=== PATIENT | male | born 1930 | race Caucasian/White ===

== ENCOUNTER 2018-11-12 12:47 | Emergency (ER) | payer OTHER ==
[2018-11-12] MEDS ORDERED: NA CHLORIDE 0.9% 1,000 ML ONE (13:24)
[2018-11-12 13:43] LABS: Protime INR 1.19
[2018-11-12 13:47] LABS: Absolute Lymphocytes (CBC) 3.3 K/uL (0.7-4.9); Basophils % 0.2 % (0-1.3); Hematocrit 33.7 % (39.6-49.0); Lymphocytes % 53.6 % (15.3-44.8); RBC Red Blood Cell Count 3.96 M/uL (4.33-5.43)
[2018-11-12 14:22] LABS: ALT/SGPT 13 U/L (12-78); AST/SGOT 20 U/L (15-37); Albumin 3.6 g/dL (3.4-5.0); Alkaline Phosphatase 87 U/L (45-117); BUN Blood Urea Nitrogen 34 mg/dL (7-18); Bicarbonate 28 mmol/L (21-32); Bilirubin Direct 0.1 mg/dL (0-0.2); Bilirubin Total 0.4 mg/dL (0.2-1.0); Glucose Level 96 mg/dL (74-106); Lipase 132 U/L (73-393); NT PRO-BNP 1114 pg/mL (<450); Potassium 5.1 mmol/L (3.5-5.1); Protein, Total 7.4 g/dL (6.4-8.2); Sodium Level 141 mmol/L (136-145); Troponin (Emerg Dept Use Only) < 0.02 ng/mL (0.0-0.045)
[2018-11-12 14:30] LABS: Magnesium 2.3 mg/dL (1.8-2.4)
--- NOTE | 2018-11-12 14:37 | EDPHYS ---
Physician Documentation [facility] Name: Juan Mcbride Age: 88 yrs Sex: Male : 1930 Arrival Date: 11/12/2018 Time: 12:51 Bed 14 Private MD: LAMONT Physician Beau López HPI: 11/12 13:55 This 88 yrs old Male presents to ER via Ambulatory with complaints of charo Abnormal Lab Results. 13:55 This 88 yrs old Male presents to ER via Ambulatory with complaints of charo Abnormal Lab Results. 13:55 no complaint. Onset: The symptoms/episode began/occurred no complaint. Severity of charo symptoms: At their worst the symptoms were very mild in the emergency department the symptoms are unchanged. The patient has not experienced similar symptoms in the past. Historical: - Allergies: 13:05 ANTIHISTAMINES; aa5 - PMHx: 13:05 GERD; Hyperlipidemia; aa5 - PSHx: 13:04 Hernia repair; bilateral knee surgeries; triple bypass; aa5 13:05 Pacemaker; CABG; aa5 - Immunization history:: Pneumococcal vaccine is up to date, Flu vaccine is up to date. - Social history:: Smoking status: Patient/guardian denies using tobacco. - Ebola Screening: : No symptoms or risks identified at this time. - Family history:: not pertinent. ROS: 13:55 Constitutional: Negative for fever, chills, and weight loss, Eyes: Negative for injury, charo pain, redness, and discharge, ENT: Negative for injury, pain, and discharge, Neck: Negative for injury, pain, and swelling, Cardiovascular: Negative for chest pain, palpitations, and edema, Respiratory: Negative for shortness of breath, cough, wheezing, and pleuritic chest pain, Abdomen/GI: Negative for abdominal pain, nausea, vomiting, diarrhea, and constipation, Back: Negative for injury and pain, : Negative for injury, bleeding, discharge, and swelling, MS/Extremity: Negative for injury and deformity, Skin: Negative for injury, rash, and discoloration, Neuro: Negative for headache, weakness, numbness, tingling, and seizure, Psych: Negative for depression, anxiety, suicide ideation, homicidal ideation, and hallucinations, Allergy/Immunology: Negative for hives, rash, and allergies, Endocrine: Negative for neck swelling, polydipsia, polyuria, polyphagia, and marked weight changes, Hematologic/Lymphatic: Negative for swollen nodes, abnormal bleeding, and unusual bruising. Exam: 13:55 Constitutional: This is a well developed, well nourished patient who is awake, alert, charo and in no acute distress. Head/Face: Normocephalic, atraumatic. Eyes: Pupils equal round and reactive to light, extra-ocular motions intact. Lids and lashes normal. Conjunctiva and sclera are non-icteric and not injected. Cornea within normal limits. Periorbital areas with no swelling, redness, or edema. ENT: Nares patent. No nasal discharge, no septal abnormalities noted. Tympanic membranes are normal and external auditory canals are clear. Oropharynx with no redness, swelling, or masses, exudates, or evidence of obstruction, uvula midline. Mucous membranes moist. Neck: Trachea midline, no thyromegaly or masses palpated, and no cervical lymphadenopathy. Supple, full range of motion without nuchal rigidity, or vertebral point tenderness. No Meningismus. Chest/axilla: Normal chest wall appearance and motion. Nontender with no deformity. No lesions are appreciated. Cardiovascular: Regular rate and rhythm with a normal S1 and S2. No gallops, murmurs, or rubs. Normal PMI, no JVD. No pulse deficits. Respiratory: Lungs have equal breath sounds bilaterally, clear to auscultation and percussion. No rales, rhonchi or wheezes noted. No increased work of breathing, no retractions or nasal flaring. Abdomen/GI: Soft, non-tender, with normal bowel sounds. No distension or tympany. No guarding or rebound. No evidence of tenderness throughout. Back: No spinal tenderness. No costovertebral tenderness. Full range of motion. Male : Normal genitalia with no discharge or lesions. Skin: Warm, dry with normal turgor. Normal color with no rashes, no lesions, and no evidence of cellulitis. MS/ Extremity: Pulses equal, no cyanosis. Neurovascular intact. Full, normal range of motion. Neuro: Awake and alert, GCS 15, oriented to person, place, time, and situation. Cranial nerves II-XII grossly intact. Motor strength 5/5 in all extremities. Sensory grossly intact. Cerebellar exam normal. Normal gait. Psych: Awake, alert, with orientation to person, place and time. Behavior, mood, and affect are within normal limits. Vital Signs: 13:06 BP 151 / 73; Pulse 60; Resp 16 S; Temp 98.0(O); Pulse Ox 98% on R/A; Pain 0/10; aa5 14:32 BP 170 / 76; Pulse 65; Resp 17; Pulse Ox 99% on R/A; tw2 MDM: 13:17 Patient medically screened. [facility] 14:00 Data reviewed: vital signs, nurses notes, lab test result(s), EKG, radiologic studies, charo plain films. 11/12 13:18 Order name: Basic Metabolic Panel; Complete Time: 14:35 [facility] 11/12 13:18 Order name: CBC with Diff [facility] 11/12 13:18 Order name: LFT's; Complete Time: 14:35 [facility] 11/12 13:18 Order name: Magnesium; Complete Time: 14:35 [facility] 11/12 13:18 Order name: NT PRO-BNP; Complete Time: 14:35 [facility] 11/12 13:18 Order name: PT-INR; Complete Time: 14:14 [facility] 11/12 13:18 Order name: Troponin (emerg Dept Use Only); Complete Time: 14:35 [facility] 11/12 13:18 Order name: XRAY Chest (1 view) [facility] 11/12 13:18 Order name: EKG; Complete Time: 13:20 [facility] 11/12 13:18 Order name: Lipase; Complete Time: 14:35 [facility] 11/12 13:18 Order name: Urine Culture [facility] 11/12 13:52 Order name: CBC Smear Scan ED[facility] 11/12 14:13 Order name: Urine Dipstick--Ancillary (enter results) 11/12 13:18 Order name: Cardiac monitoring; Complete Time: 13:21 [facility] 11/12 13:18 Order name: EKG - Nurse/Tech; Complete Time: 13:39 [facility] 11/12 13:18 Order name: IV Saline Lock; Complete Time: 13:39 [facility] 11/12 13:18 Order name: Labs collected and sent; Complete Time: 13:39 [facility] 11/12 13:18 Order name: O2 Per Protocol; Complete Time: 13:21 [facility] 11/12 13:18 Order name: O2 Sat Monitoring; Complete Time: 13:21 [facility] 11/12 13:18 Order name: Urine Dipstick-Ancillary (obtain specimen); Complete Time: 14:18 [facility] Administered Medications: 13:30 Drug: NS 0.9% 1000 ml Route: IV; Rate: 1 bolus; Site: right antecubital; tw2 14:37 Follow up: Response: No adverse reaction; IV Status: Completed infusion; IV Intake: tw2 1000ml Disposition: 11/12/18 14:36 Discharged to Home. Impression: Unspecified kidney failure. - Condition is Stable. - Discharge Instructions: Dehydration, Adult, Dehydration, Adult, [id number]-[id number], Chronic Kidney Disease, Adult, [id number]-hf-Gxpi. - Medication Reconciliation Form, Thank You Letter, Antibiotic Education, Prescription Opioid Use form. - Follow up: Private Physician; When: 2 - 3 days; Reason: Recheck today's complaints, Continuance of care, Re-evaluation by your physician. - Problem is new. - Symptoms have improved. Signatures: Dispatcher [employer] EDBeau Limon MD MD cha Calderon, Audri, RN RN aa5 Christin Squires RN RN tw2 Corrections: (The following items were deleted from the chart) 13:06 13:04 Allergies: No Known Allergies; [place] aa5 14:49 14:36 11/12/2018 14:36 Discharged to Home. Impression: Unspecified kidney failure. tw2 Condition is Stable. Forms are Medication Reconciliation Form, Thank You Letter, Antibiotic Education, Prescription Opioid Use. Follow up: Private Physician; When: 2 - 3 days; Reason: Recheck today's complaints, Continuance of care, Re-evaluation by your physician. Problem is new. Symptoms have improved. [facility]
--- NOTE | 2018-11-12 14:37 | ER ---
Nurse's Notes [facility] Name: Juan Mcbride Age: 88 yrs Sex: Male : 1930 Arrival Date: 11/12/2018 Time: 12:51 Bed 14 Private MD: Diagnosis: Unspecified kidney failure Presentation: 11/12 13:01 Presenting complaint: Patient states: "Dr. Deal just called and said my sodium level aa5 is high", pt reports he had blood draw on . Pt reports dizziness and generalized weakness. Transition of care: patient was not received from another setting of care. Onset of symptoms was October 2018. Risk Assessment: Do you want to hurt yourself or someone else? Patient reports no desire to harm self or others. Initial Sepsis Screen: Does the patient meet any 2 criteria? No. Patient's initial sepsis screen is negative. Does the patient have a suspected source of infection? No. Patient's initial sepsis screen is negative. Care prior to arrival: None. 13:01 Acuity: JAIDA 3 aa5 13:01 Method Of Arrival: Ambulatory aa5 Historical: - Allergies: 13:05 ANTIHISTAMINES; aa5 - PMHx: 13:05 GERD; Hyperlipidemia; aa5 - PSHx: 13:04 Hernia repair; bilateral knee surgeries; triple bypass; aa5 13:05 Pacemaker; CABG; aa5 - Immunization history:: Pneumococcal vaccine is up to date, Flu vaccine is up to date. - Social history:: Smoking status: Patient/guardian denies using tobacco. - Ebola Screening: : No symptoms or risks identified at this time. - Family history:: not pertinent. Screenin:15 Abuse screen: Denies threats or abuse. Nutritional screening: No deficits noted. tw2 Tuberculosis screening: No symptoms or risk factors identified. Fall Risk Secondary diagnosis (15 points) impaired mobility. Assessment: 13:16 General: Appears in no apparent distress. slender, well groomed, Behavior is calm, tw2 cooperative, appropriate for age. Pain: Denies pain. Neuro: Reports dizziness, weakness "when i stand up". Cardiovascular: Heart tones S1 S2 Patient's skin is warm and dry. Respiratory: Airway is patent Respiratory effort is even, unlabored, Respiratory pattern is regular, symmetrical, Breath sounds are clear bilaterally. GI: No signs and/or symptoms were reported involving the gastrointestinal system. Abdomen is flat, Bowel sounds present X 4 quads. : No signs and/or symptoms were reported regarding the genitourinary system. EENT: No signs and/or symptoms were reported regarding the EENT system. Derm: Skin is pale. Musculoskeletal: Range of motion: intact in all extremities. 14:32 Reassessment: Patient appears in no apparent distress at this time. No changes from tw2 previously documented assessment. Patient and/or family updated on plan of care and expected duration. Pain level reassessed. Vital Signs: 13:06 BP 151 / 73; Pulse 60; Resp 16 S; Temp 98.0(O); Pulse Ox 98% on R/A; Pain 0/10; aa5 14:32 BP 170 / 76; Pulse 65; Resp 17; Pulse Ox 99% on R/A; tw2 ED Course: 12:51 Patient arrived in ED. mr 13:00 Arm band placed on. aa5 13:04 Triage completed. aa5 13:14 Christin Squires, RN is Primary Nurse. tw2 13:14 Bed in low position. Call light in reach. Adult w/ patient. Pulse ox on. NIBP on. tw2 13:17 Beau López MD is Attending Physician. [facility] 13:28 Inserted saline lock: 20 gauge in right antecubital area, using aseptic technique. tw2 Blood collected. 13:41 XRAY Chest (1 view) In Process Unspecified. EDMS 14:18 Urine Culture Sent. tw2 14:48 No provider procedures requiring assistance completed. IV discontinued, intact, tw2 bleeding controlled, No redness/swelling at site. Pressure dressing applied. Administered Medications: 13:30 Drug: NS 0.9% 1000 ml Route: IV; Rate: 1 bolus; Site: right antecubital; tw2 14:37 Follow up: Response: No adverse reaction; IV Status: Completed infusion; IV Intake: tw2 1000ml Intake: 14:37 IV: 1000ml; Total: 1000ml. tw2 Outcome: 14:36 Discharge ordered by . [facility] 14:48 Discharged to home ambulatory, with significant other. tw2 14:48 Condition: stable 14:48 Discharge instructions given to patient, significant other, Instructed on discharge instructions, follow up and referral plans. Demonstrated understanding of instructions, follow-up care. 14:49 Patient left the ED. tw2 Signatures: Dispatcher [employer] EDBeau Limon MD MD cha Rivera, Arlette Anya Briceño RN RN aa5 Christin Squires RN RN tw2 Corrections: (The following items were deleted from the chart) 13:06 13:04 Allergies: No Known Allergies; [place] aa5
[2018-11-12 14:43] LABS: Urine Blood NEGATIVE (NEG); Urine Glucose NEGATIVE (NEG); Urine Protein NEGATIVE (NEG); Urine Specific Gravity 1.015 (1.005-1.030); Urine pH 6.5 (5.0-7.0)
[2018-11-12 14:45] LABS: Blood Morphology Comment NOT SEEN (NOT SEEN); Platelet Estimate DECR; Urine White Blood Cell Casts OK
[2018-11-12 14:55] VITALS: TEMP 98
[2018-11-12 14:56] VITALS: BP 170/76; O2SAT 99
--- NOTE | 2018-11-12 15:34 | EKG ---
Test Date: 2018-11-12 Test Time: 13:28:08 Metal Moulder'S Assistant: KARTHIK MEASUREMENT RESULTS: Intervals: Rate: 60 OK: 196 QRSD: 94 QT: 406 QTc: 406 Russell: P: -20 OK: 196 QRS: 50 T: 63 INTERPRETIVE STATEMENTS: Atrial-paced rhythm Abnormal ECG Compared to ECG 07/04/2015 07:40:42 Sinus rhythm no longer present Electronically Signed On 11-12-18 15:33:28 CDT by Mark Vidal
--- NOTE | 2018-11-12 16:16 | RAD REPORT ---
EXAM DESCRIPTION: Anurag Single View11/12/2018 1:40 pm CLINICAL HISTORY: cough COMPARISON: 2017 FINDINGS: The lungs appear clear of acute infiltrate. The heart is mildly enlarged. Pacemaker leads are in place. IMPRESSION: No acute abnormalities displayed
== END 2018-11-12 14:49 | disposition home or self-care (01) ==
LOC: ER 12:47
DX: N19 Unspecified kidney failure (principal); Z88.8 Allergy status to other drugs, medicaments and biological substances; Z95.1 Presence of aortocoronary bypass graft
CPT/HCPCS: 93005; 85025; 87086; 80048; 36415; 83735; 85610; 80076; 81003; 84484; 83690; 83880; 71045; 96360; 99284; J7030; 87088

== ENCOUNTER 2019-04-13 08:32 | Day surgery (SDC) | payer OTHER ==
[2019-04-13] MEDS ORDERED: Ringers Lactate 1,000 ML IV ONE (09:05)
[2019-04-13] MEDS ORDERED: CEFAZOLIN/SWI 1gm 1 GM/10 ML SYR ONE (09:06)
[2019-04-13 09:23] VITALS: O2SAT 99
[2019-04-13 09:31] LABS: Potassium 4.6 mmol/L (3.5-5.1)
[2019-04-13] MEDS ORDERED: FENTANYL CITR 100 MCG/2 ML ONE (09:55)
[2019-04-13] MEDS ORDERED: LIDOCAINE 1% MPF 5 ML VIAL ONE ×2 (10:02→10:13)
[2019-04-13] MEDS ORDERED: propofoL 200 MG/20 ML VIAL IV ONE ×2 (10:02→10:03)
[2019-04-13 13:05] VITALS: BP 181/77; TEMP 97.2
--- NOTE | 2019-04-13 21:22 | OP ---
Date of Procedure: 04/13/2019 Surgeon: Dom Mercedes MD [employer] Manager: DEANDRA Grier Preoperative Diagnosis: Right eye vision change. Postoperative Diagnosis: Right eye vision change, rule out temporal arteritis. Procedure Performed: Right temporal artery biopsy and localization with the Doppler device. Estimated Blood Loss: Minimal. Specimen: Right temporal artery. Findings: As above. Anesthesia: MAC. Complications: None. Disposition: Patient tolerated the procedure in stable condition, taken to Recovery in good general condition. Procedure In Detail: Patient was brought to the OR and placed in supine position. MAC anesthesia be gun. Patient was prepped and draped in the usual sterile fashion and then Doppler device was used to isolate the branch of the temporal artery anterior and superior to the right ear. Then, 4 cm area i nfiltrated with lidocaine 1%. A 15 blade was used to make a 4 cm incision. Subcutaneous tissue was divided. A branches of our temporal artery identified. Proximal and distal control obtained. A 4 c m segment excised and sent to Pathology and then both ends tied with 4-0 silk. Wound irrigated and b leeding controlled with cautery. 4-0 chromic was used to approximate the subcutaneous tissue and jyoti se the skin. Sterile dressing was applied. Patient was awakened and taken to Recovery in good gener al condition. Discharge Note: Patient will go to Day Surgery, then home when stable. Disposition: Home. Condition: Stable. Discharge Instructions: Resume home medications and diet. Activity as tolerated. No heavy lifting. Remove outer dressing in 2 days. Shower. Keep wound clean and dry. Keep Steri-Strips on at all t imes. Follow up my office in 2 weeks. Call for appointment. Follow with Dr. Quiros in 1 week. T ylenol No. 3 one tablet p.o. q.4 p.r.n. pain. /MODL Voice ID: [id number] Report ID: [id number]
== END 2019-04-13 11:50 | disposition home or self-care (01) ==
LOC: OR 08:32
PROVIDERS: ATTEND Surgery
PROC: 03BS0ZX Excision of Right Temporal Artery, Open Approach, Diagnostic (ICD-10-PCS; principal; 2019-04-13 09:45)
DX: H57.11 Ocular pain, right eye (principal); H53.2 Diplopia; K21.9 Gastro-esophageal reflux disease without esophagitis; M19.90 Unspecified osteoarthritis, unspecified site; Z95.0 Presence of cardiac pacemaker; Z95.1 Presence of aortocoronary bypass graft
CPT/HCPCS: 80048; 36415; 88305; 37609; J2704; J3010; J0690; J7120